=== PATIENT | female | born 1970 | race Caucasian/White ===

== ENCOUNTER → 2017-02-08 | Outpatient (CLI) | payer OTHER | END | disposition short-term general hospital (02) | LOC: CLNEPH 09:20 → CLRHEU 09:20 | DX: M54.5 Low back pain (principal); M25.531 Pain in right wrist; M25.532 Pain in left wrist; M25.551 Pain in right hip; M25.552 Pain in left hip; M25.562 Pain in left knee; M25.561 Pain in right knee; M79.671 Pain in right foot; M79.672 Pain in left foot; M79.641 Pain in right hand; M79.642 Pain in left hand; R76.0 Raised antibody titer; R76.8 Other specified abnormal immunological findings in serum; Z87.39 Personal history of other diseases of the musculoskeletal system and connective tissue ==